=== PATIENT | female | born 1970 | race Caucasian/White ===

== ENCOUNTER 2022-07-02 09:04 | Outpatient (CLI) | payer OTHER ==
[2022-07-02] MEDS ORDERED: BARIUM SULFATE 135 ML SUSP.RECON (E-Z-HD) PO ONE (09:37)
== END 2022-07-02 19:18 | disposition home or self-care (01) ==
LOC: SRD 09:04
DX: R47.02 Dysphasia (principal)
CPT/HCPCS: 74220-TC